=== PATIENT | female | born 1945 ===

== ENCOUNTER 2021-02-06 06:15 | Day surgery (SDC) | payer OTHER ==
[~2021-02-06 06:15] MED LIST: AMBIEN PAK10 MG; ATACAND4 MG; BISOPROLOL-HCT1 EAC1; DIOVAN HCT 320/1 TA2; DURICEF500 MG; GABAPENTIN800 MG; JANUMET 50-501 UDTAB; KAPVAY0.1 MG; MONTELUKAST SODI4 M1; SIMVASTATIN5 MG; TRAMADOL HCL-AP1 TAB; TRAZODONE HCL150 MG; TUSNEL C SYRUP473 ML PO; ZIAC 10/6.25 MG1 TAB; ZOLPIDEM TART1.75 MG
== END 2021-02-06 16:15 | disposition home or self-care (01) ==
LOC: CIR.AMB 06:15
PROVIDERS: ATTEND Otolaryngology Otology & Neurotology
DX: H60.41 Cholesteatoma of right external ear (principal); Z20.822 Contact with and (suspected) exposure to COVID-19